=== PATIENT | male | born 1975 | race Caucasian/White ===

== ENCOUNTER 2016-08-11 20:01 | Emergency (ER) | payer OTHER ==
[2016-08-11 20:08] VITALS: BP 146/95
[2016-08-11] MEDS ORDERED: Triamcinolone 0.5% OINT * 15 GM TUBE TOPICAL ONE (20:55)
[2016-08-11] MEDS ORDERED: Dexamethasone IV* 4 MG/ML 1 ML (4 MG) IM ONE (21:01)
[2016-08-11] MEDS: oxyCODONE/Acetamin 5/325 MG* TAB PO ONE ×2 (21:12→21:13)
--- NOTE | 2016-08-11 22:46 | ED ---
Skin Complaint - HPI Summary HPI Summary: Patient presents to ED with diffuse erythematous lesions with central fluid blistering throughout body with worsening sxs on abdomen and back. He notes to a 8/10 pain and denies any pruritis. He states the lesions appeared soon after weedeating without a shirt on Wednesday. The lesions appeared as red areas which then became slightly raised and today with blisters. The pain is described as a burning, worse with hydrocortisone cream and nothing makes it better. Painful to the touch. The blistering areas have small red streaking from the lesions as it appears to be spreading. - History of Current Complaint Chief Complaint: EDRashSkinAbscess Time Seen by Provider: 08/11/16 20:21 Stated Complaint: RASH ON ABD Hx Obtained From: Patient Onset/Duration: Started Days Ago Skin Exposure Onset/Duration: Days Ago Timing: Constant Onset Severity: Worse Since: - this morning Current Severity: Severe Pain Intensity: 8 Pain Scale Used: 0-10 Numeric Skin Location: Diffuse, Abdomen, Other: - back Character: Pain, Redness, Raised Aggravating Symptom(s): Touch Alleviating Symptom(s): Nothing Associated Signs & Symptoms: Negative, Tenderness, Red Streaks Related History: Possible Reaction to: Environmental Exposure - Allergy/Home Medications Allergies/Adverse Reactions: Allergies Allergy/AdvReac Type Severity Reaction Status Date / Time Aspirin AdvReac Unknown Verified 01/11/15 12:48 Reaction Details PMH/Surg Hx/FS Hx/Imm Hx Previously Healthy: Yes Respiratory History: Reports: Hx Asthma - Hx OF CHILD & EARLY ADULTHOOD NO sSx IN YEARS Sensory History: Reports: Hx Contacts or Glasses - CONTACTS, WILL NOT WEAR DAY OF SURGERY Opthamlomology History: Reports: Hx Contacts or Glasses - CONTACTS, WILL NOT WEAR DAY OF SURGERY - Surgical History Surgery Procedure, Year, and Place: 1995 [facility] [place] Hx Anesthesia Reactions: No - Immunization History Hx Pertussis Vaccination: No Immunizations Up to Date: Unable to Obtain/Confirm Infectious Disease History: No Infectious Disease History: Denies: Traveled Outside the [place] in Last 30 Days - Social History Occupation: Employed Full-time Lives: With Family Alcohol Use: Occasionally Alcohol Amount: 7 DRINKS/WEEK Hx Substance Use: Yes Substance Use Type: Reports: Marijuana Substance Use Comment - Amount & Last Used: OCCASSIONAL, WILL REFRAIN UNTIL AFTER SURGERY 01/14/15 Hx Tobacco Use: Yes Smoking Status (MU): Former Smoker Type: Cigarettes Amount Used/How Often: LESS THEN 1 PPD 15 YEARS Length of Time of Smoking/Using Tobacco: 15 YRS Have You Smoked in the Last Year: No Review of Systems Constitutional: Negative Eyes: Negative Respiratory: Negative Gastrointestinal: Negative Positive: no symptoms reported, see HPI Musculoskeletal: Negative Positive: Rash - diffuse erythematous rash with blisters Psychological: Normal All Other Systems Reviewed And Are Negative: Yes Physical Exam Triage Information Reviewed: Yes Vital Signs On Initial Exam: Initial Vitals Temp Pulse Resp BP Pulse Ox 98 F 111 16 146/95 98 08/11/16 20:04 08/11/16 20:04 08/11/16 20:04 08/11/16 20:04 08/11/16 20:04 Vital Signs Reviewed: Yes Appearance: Positive: Well-Appearing, Well-Nourished Skin: Positive: Warm, Skin Color Reflects Adequate Perfusion, Other - diffuse erythematous rash with vesicles, and bullae, arranged in linear or streak-like configurations and some areas with convalescing patches Diagnostics - Vital Signs Vital Signs Temp Pulse Resp BP Pulse Ox 08/11/16 21:13 22 08/11/16 21:12 20 08/11/16 20:04 98 F 111 16 146/95 98 - Laboratory Lab Statement: Any lab studies that have been ordered have been reviewed, and results considered in the medical decision making process. Course/Dx - Course Course Of Treatment: Patient presents with diffuse erythematous rash with vesicles, and bullae, arranged in linear or streak-like configurations and some areas with convalescing patches diffiusely throughout body worse over abdomen and back without face or genitalia involvement. Lesions are not oozing fluid. Patient was weedeating grass 2 days ago when he developed the lesions which are now worsening in pain/burning and now are fluid filled vesicles with streaking appearance forming. He has not tried anything for relief. Prednisone and pain management rx. Triamcinalone 5% ointment, decadron 8mg IM given in ED. Encouraged benadryl at bedtime and claritin during the day. Cold compresses for relief. Patient OK with discharge and will follow up with PCP in a few days. - Differential Diagnoses - Skin Complaint Differential Diagnoses: Contact Dermatitis, Poison [place], Poison [place], Urticaria - Diagnoses Provider Diagnoses: Irritant contact dermatitis, unspecified cause Discharge - Discharge Plan Condition: Stable Disposition: HOME Prescriptions: HYDROcodone/ACETAMIN 5-325 MG* [[place] 5-325 TAB*] 1 tab PO Q4H PRN #12 tab MDD 6 PRN Reason: Pain predniSONE TAB* [Deltasone TAB*] 50 mg PO DAILY #5 tab Patient Education Materials: Contact Dermatitis (ED), Cold Compress or Soak (ED ) Referrals: Calvin Mclean MD [Primary Care Provider] - Additional Instructions: Follow up with PCP in 2 days or follow up with dermatology if symptoms persist Triamcinalone ointment to affected areas 4 times daily Prednisone - 1 tab daily in the morning for 5 days Take benadryl at bedtime and Claritin 12-D over the counter every morning until symptoms subside cold compresses may help Take ibuprofen 600mg three times daily for inflammation For pain not well controlled with ibuprofen, you may take norco up to 6 times daily - do not drive with this medication.
== END 2016-08-11 21:26 | disposition home or self-care (01) ==
LOC: ED 20:01
DX: L24.9 Irritant contact dermatitis, unspecified cause (principal); Z88.6 Allergy status to analgesic agent; Z87.891 Personal history of nicotine dependence
CPT/HCPCS: 96372; 99282; A9270-GY; J1100